=== PATIENT | female | born 1985 | race African-American/Black ===

== ENCOUNTER 2016-09-03 08:11 | Emergency (ER) | payer MEDICAID ==
--- NOTE | ~2016-09-03 | ER ---
PATIENT'S NAME: [facility] AGE: 31 Y [address] ROOM: [place] [address] LOCATION: ED ADMIT DATE: 09/03/2016 ER/Outpatient Report DISCHARGE DATE: 09/03/2016 FAMILY PHYSICIAN: PHYSICIAN, JANET ATTENDING PHYSICIAN: Leai Matta Time of Arrival: 0811 hours. Time of Evaluation: 0846 hours. IDENTIFICATION: A 31-year-old female. CHIEF COMPLAINT: Left knee pain. HISTORY OF PRESENT ILLNESS: The patient has had left knee pain when got out of her mom's car yesterday, which was lower than her usual truck, and she had a twisting injury to her left knee and has had a burning pain medially since that time. She took ibuprofen and pain cream with no relief. ALLERGIES: NO KNOWN DRUG ALLERGIES. MEDICATIONS: No current medications other than inhaler. MEDICAL PROBLEMS: Previous left knee pain. She has had this injected about a year ago with Dr. Yo. Tobacco use, 4 packs per day. Alcohol use, denies. Drug use, denies. SOCIAL HISTORY: The patient lives here in [place]. REVIEW OF SYSTEMS: All systems reviewed and negative other than what is noted in the HPI. PHYSICAL EXAMINATION: VITAL SIGNS: Height 5 feet 11 inches, weight 175.7 kg, pulse 75, respirations 18, temp 97, blood pressure 149/80, sats 95% on room air. GENERAL: A 31-year-old, obese female, in mild distress. HEENT: Unremarkable. LUNGS: Clear to auscultation. HEART: Regular rate and rhythm. PATIENT'S NAME: [facility] AGE: 31 Y [address] ROOM: [place] [address] LOCATION: ED ADMIT DATE: 09/03/2016 ER/Outpatient Report DISCHARGE DATE: 09/03/2016 FAMILY PHYSICIAN: PHYSICIAN, JANET ATTENDING PHYSICIAN: Leia Matta ABDOMEN: Soft, nondistended, nontender. SKIN: [place], warm, and dry. No lesions or rashes noted. NEURO: No focal deficit. EXTREMITIES: Left knee, no ligamentous laxity. No significant swelling appreciated. No bruising or ecchymosis. Tender to palpation in the medial joint line. No palpable deformities. Negative anterior drawer. Negative Michelle's. LABORATORY DATA AND X-RAYS: X-ray, negative for acute fracture. Pending radiology over-read. A/P: L knee pain Initially, I was going to place the patient in a knee immobilizer. I think her size will prohibit this, so Hiram, ice, elevate, crutches and toe-touch weight bear as tolerated, naproxen 500 mg b.i.d. with food for pain. Follow up with Dr. Villa this week. Follow up sooner if any problems or concerns. The patient understands and agrees, and all questions have been answered. MD BIANCA LYLES/luzma /[id number] d: 09/03/162141 t: 09/05/16 1435, OUTPATIENT REPORT
== END 2016-09-03 09:29 | disposition disaster alternative care site (69) ==
LOC: GMED 08:11
DX: M25.562 Pain in left knee (principal); X50.1XXA Overexertion from prolonged static or awkward postures, initial encounter
CPT/HCPCS: J1885

== ENCOUNTER → 2016-10-01 | Outpatient (CLI) | payer MEDICAID | END | disposition disaster alternative care site (69) | LOC: GRAD 07:40 | DX: M25.562 Pain in left knee (principal); M23.242 Derangement of anterior horn of lateral meniscus due to old tear or injury, left knee ==

== ENCOUNTER 2016-10-22 08:28 | Emergency (ER) | payer MEDICAID ==
--- NOTE | ~2016-10-22 | ER ---
PATIENT'S NAME: CAESAR MCGEE [facility] AGE: 31 Y [address] ROOM: [place] [address] LOCATION: [facility] ADMIT DATE: 10/22/2016 ER/Outpatient Report DISCHARGE DATE: 10/22/2016 FAMILY PHYSICIAN: PHYSICIAN, NO ATTENDING PHYSICIAN: Leia Matta Time of Arrival: 0828 hours. Time of Evaluation: Time seen by Dr. Miller, Resident is 0906 hours. IDENTIFICATION: A 31-year-old female. CHIEF COMPLAINT: Left knee pain. HISTORY OF PRESENT ILLNESS: History was reviewed with Dr. Miller. I saw and evaluated the patient. I reviewed the history and physical as well as examination. I discussed with the resident and agree with her findings and plan as documented in Dr. Miller's note. LEIA MATTA MD CAR/modl /[id number] d: 10/22/16 1330 t: 10/23/16 1029, OUTPATIENT REPORT
--- NOTE | ~2016-10-22 | ER ---
PATIENT'S NAME: CAESAR MCGEE [facility] AGE: 31 Y [address] ROOM: [place] [address] LOCATION: [facility] ADMIT DATE: 10/22/2016 ER/Outpatient Report DISCHARGE DATE: 10/22/2016 FAMILY PHYSICIAN: PHYSICIAN, NO ATTENDING PHYSICIAN: Leia Matta HISTORY OF PRESENT ILLNESS: The patient is a 31-year-old female here with chronic left knee pain. The patient had an injury greater than 2 months ago, has been seeing Dr. Villa in clinic for management, and is currently in the process of getting surgery scheduled and getting insurance authorization for the procedure. However, the patient states she got clearance from Dr. Villa' office to return to work, so she returned to work yesterday and was up on her feet most of the day, was not wearing her brace or an Hiram wrap, noticed that the swelling increased last night and she was unable to sleep very well because of the pain, and she came in "to get this all out and to make the pain stop." The patient has underwent MRI through Dr. Villa' office and found torn meniscus on the left medial meniscus, and the patient has been given narcotics through his office as well. She states that she does not like to take medications, takes them when she needs to, but denies taking any this morning. The patient has not tried any ice therapy and does not wear her brace or Hiram wrap consistently. The patient does use a cane to assist her ambulating. The patient denies any other symptoms of numbness, tingling, inability to bear weight on the lower extremity, nausea, vomiting, headaches, shortness of breath, chest pain, abdominal pain, or urinary symptoms. PAST MEDICAL HISTORY AND SOCIAL HISTORY: Includes 3 prior sections. Denies any other surgeries. She is a current everyday smoker. Denies alcohol use, and denies other illicit drug use. ALLERGIES: THE PATIENT HAS NO KNOWN MEDICAL ALLERGIES. MEDICATIONS: The patient is currently taking a narcotic for her knee pain, unknown name. REVIEW OF SYSTEMS: A complete and comprehensive review of systems was completed and is negative except as noted in the HPI above. PHYSICAL EXAMINATION: VITAL SIGNS: Weight 180.3 kg, blood pressure 139/95, pulse 74, respirations 18, temperature 97.2 TM, 97% O2 on room air. GENERAL: The patient is in no acute distress, is using a cane to assist her PATIENT'S NAME: CAESAR MCGEE [facility] AGE: 31 Y [address] ROOM: [place], [place] [address] LOCATION: [facility] ADMIT DATE: 10/22/2016 ER/Outpatient Report DISCHARGE DATE: 10/22/2016 FAMILY PHYSICIAN: PHYSICIAN, NO ATTENDING PHYSICIAN: Leia Matta in ambulating to the ER bay. She is alert and oriented x4. CHEST: Normal breaths. Clear to auscultation bilaterally. HEART: Regular rate and rhythm. No murmurs, rubs, or gallops. ABDOMEN: Normal upon inspection. Soft and nontender. EXTREMITIES: She is able to move all extremities, and there is no notable edema. Valgus strain of the left knee induces pain. She has no calf tenderness. No weakness or numbness. There are no wounds or erythema noted. She does have mild joint effusion of the left knee as well. No crepitus upon today's exam. SKIN: Warm, dry, and intact. LABORATORY DATA: No labs or imaging were performed today. IMPRESSION: Chronic left knee pain, likely from meniscus tear. EMERGENCY DEPARTMENT COURSE: The patient was brought back to the ER bay, was examined promptly, and determined antiinflammatory would be the best option for her. Labs were obtained from [facility]3] as she just had complete metabolic panel and CBC done through [facility]3], and BUN and creatinine were within normal limits, so the patient was given 60 mg of IM Toradol and given a prescription for Voltaren gel 1% to be applied to the left knee twice daily as needed for pain. The patient was told not to take any additional ibuprofen or NSAIDs today or for the next 24 hours, and she could still take Tylenol to assist her with her pain. The patient has an appointment this afternoon with Dr. Villa and was instructed to keep this appointment. She was also instructed to do ice therapy 3 to 4 times a day for 20 minutes at a time and to use a brace or an Hiram wrap when she is up and ambulating. Keep her leg elevated at night after she has been up on it. The patient was discharged in good condition. BERENICE JEFFERSON, RESIDENT FOR MD JOVAN LYLES/luzma /[id number] d: 10/22/16 1407 t: 10/25/16 194, OUTPATIENT REPORT
== END 2016-10-22 09:37 | disposition disaster alternative care site (69) ==
LOC: GMED 08:28
DX: G89.29 Other chronic pain (principal); M25.562 Pain in left knee; F17.200 Nicotine dependence, unspecified, uncomplicated
CPT/HCPCS: J1885

== ENCOUNTER → 2017-02-24 | Outpatient (CLI) | payer MEDICAID | END | disposition disaster alternative care site (69) | LOC: GRAD 12:36 | DX: S83.242A Other tear of medial meniscus, current injury, left knee, initial encounter (principal); R60.0 Localized edema; M25.462 Effusion, left knee; X58.XXXA Exposure to other specified factors, initial encounter ==